=== PATIENT | female | born 1990 | race Caucasian/White ===

== ENCOUNTER 2016-07-10 16:51 | Emergency (ER) | payer OTHER ==
[~2016-07-10] VITALS: Ht 154.9 cm; Wt 69.4 kg
[2016-07-10 18:44] VITALS: BP 104/76
== END 2016-07-10 18:44 | disposition home or self-care (01) ==
LOC: ED 16:51
DX: J02.9 Acute pharyngitis, unspecified (principal)
CPT/HCPCS: J1100; J1885

== ENCOUNTER 2017-01-16 18:13 | Emergency (ER) | payer OTHER ==
[2017-01-16 19:44] VITALS: BP 112/79
== END 2017-01-16 19:44 | disposition home or self-care (01) ==
LOC: ED 18:13
DX: N30.90 Cystitis, unspecified without hematuria (principal); Z88.1 Allergy status to other antibiotic agents

== ENCOUNTER 2017-10-29 22:14 | Emergency (ER) | payer OTHER ==
[~2017-10-29] VITALS: Ht 154.9 cm; Wt 70.8 kg
[2017-10-29 22:18] VITALS: Ht 154.9 cm; Wt 70.8 kg
[2017-10-30 01:12] LABS: BASOPHIL % 0.7 % (0-2); PLATELET COUNT 270 x10^3mcL (130-400); RED CELL DISTRIBUTION WIDTH 13.4 % (11.5-14.5)
[2017-10-30 01:14] LABS: CALCIUM 8.8 mg/dL (8.5-10.1); CHLORIDE SERUM 103 mmol/L (98-107); CREATININE SERUM 0.9 mg/dL (0.6-1.0); GFR1 > 60 mL/min; GLUCOSE SERUM 93 mg/dL (74-106); POTASSIUM SERUM 4.1 mmol/L (3.5-5.1); SODIUM SERUM 141 mmol/L (136-145)
[2017-10-30 01:19] LABS: ALBUMIN 4.2 g/dL (3.4-5.0); ALKALINE PHOSPHATASE 57 U/L (46-116); ALT/SGPT 18 U/L (14-59); AST/SGOT 37 U/L (15-37); BILIRUBIN TOTAL 0.34 mg/dL (0.20-1.00); LIPASE 219 IU/L (73-393)
[2017-10-30 01:21] LABS: TOTAL PROTEIN, SERUM 8.4 g/dL (6.4-8.2)
[2017-10-30 04:49] VITALS: BP 103/61
== END 2017-10-30 04:49 | disposition home or self-care (01) ==
LOC: ED 22:14
PROVIDERS: Emergency Medicine
DX: R11.10 Vomiting, unspecified (principal); R19.7 Diarrhea, unspecified; R10.32 Left lower quadrant pain; Z88.1 Allergy status to other antibiotic agents
CPT/HCPCS: J0500; J1200; J2550; J7030

== ENCOUNTER 2018-09-11 13:24 | Emergency (ER) | payer OTHER ==
[~2018-09-11] VITALS: Ht 154.9 cm; Wt 65.3 kg
[2018-09-11 13:37] VITALS: Ht 154.9 cm; Wt 65.3 kg
[2018-09-11 16:07] VITALS: BP 105/69
== END 2018-09-11 16:07 | disposition home or self-care (01) ==
LOC: ED 13:24
DX: J06.9 Acute upper respiratory infection, unspecified (principal); H66.92 Otitis media, unspecified, left ear; R11.2 Nausea with vomiting, unspecified; Z88.1 Allergy status to other antibiotic agents